=== PATIENT | male | born 1945 | race Caucasian/White ===

== ENCOUNTER → 2016-11-17 | Day surgery (SDC) | payer OTHER ==
[~2016-11-17] VITALS: Ht 185.4 cm; Wt 89.0 kg
[~2016-11-17] MED LIST: ACYC-57 PO; ASPI81TA28 PO; ATOR-54 PO; CEFAZOLIN 1000MG/55 ML D5W IV SCH; CEFAZOLIN 2000 MG/60 ML D5W IV SCH; FENTANYL CITRATE INJ 50 MCG/1 ML 2 ML VIAL IV ONE; FENTANYL CITRATE INJ 50 MCG/1 ML 2 ML VIAL ONE; LIDOCAINE HCL 1% 20 ML VIAL INJ ONE; LIDOCAINE HCL 1% 20 ML VIAL ONE; LISI-725 PO; LOVA20TA4 PO; MIDAZOLAM HCL 1 MG/ML 2ML VIAL IV ONE; MIDAZOLAM HCL 1 MG/ML 2ML VIAL ONE; MISCCAP80 PO; OXYC-57 PO; PSYL55.43 PO
[2016-11-17 06:56] VITALS: BP 135/75; PULSE 66; TEMP 37.2; O2SAT 94; Ht 185.4 cm; Wt 89.0 kg
--- NOTE | 2016-11-17 07:20 | History and Physical ---
History & Physical Date of Service Nov 17, 2016. History & Physical Chief Complaint: CLL, post nfusaport History of Present Illness The patient is a 69 year old male with CLL dx'ed approx 2-3 yr ago who had an infusaport insertion in Mar for chemotherapy. Pt no longer needs the port. Denies HOFF, fever, chills, chest pain, SOB, abd pain, N/V, rest pain, claudication, other complaints. Allergies Coded Allergies: No Known Allergies (Unverified , 03/27/14) Surgical / Medical History Hx Cardiac Surgery: No Hx Abdominal Surgery: No Hx Cancer Surgery: No Hx Thoracic Surgery: No Hx Orthopedic: No Hx Urinary Tract Surgery: Yes (PROSTATECTOMY 2005) HX Other Surgery: No Past Medical/Surgical History: Blood Dyscrasias, Cancer (prostate), Hypertension, Pulmonary Emboli Family History FH: cancer FH: heart disease Social History Smoking Status: Never Smoker Hx Tobacco Use In Past Year?: No Hx Alcohol Use - Type & Amnt: Yes (RED WINE 1-2 GLASSES) Hx Substance Use -Type & Amnt: No ROS - Vascular H&P Review of Systems Review of Systems Constitutional: + fatigue, + malaise, No chills, No fever Skin: No change in color, No rash Eyes: No photophobia, No visual changes ENMT: No rhinorrhea, No sore throat Respiratory: No EDWARDS, No cough, No hemoptysis, No orthopnea Cardiovascular: No chest pain, No chest tightness, No edema, No intermittent claudication, No palpitations, No syncope Gastrointestinal: No abdominal pain, No diarrhea, No nausea, No vomiting Neurologic: No dizziness, No headache, No numbness, No tingling Physical Ex - Vascular H&P Physical Exam Physical Exam: Constitutional: General Apperance: heathly-appearing, well-nourished, well-developed Level of Distress: NAD Ambulation: ambulating normally Psychiatric: Mental Status: active & alert, normal mood, normal affect Orientation: oriented except where noted, to time, to place, to person Memory: recent memory normal, remote memory normal Head: normocephalic, atraumatic Eyes: EOM: EOMI ENMT: normal ENT inspection, hearing grossly normal Neck: supple, trachea midline Lungs: Respiratory effort: no dyspnea Auscultation: breath sounds normal, no wheezing, no rales/crackles, no rhonchi Cardiovascular: Apical Impulse: not displaced Heart Auscultation: RRR, no murmurs, no rubs, no gallops Peripheral Pulses: Pulses: full and equal, in all extremities except if noted Bruits: none appreciated Carotid Pulse: normal on the left, normal on the right Brachial Pulses: normal on the left, normal on the right Radial Pulse: normal on the left, normal on the right Femoral Pulse: normal on the left, normal on the right Posterior Tibialis Pulse: normal on the left, normal on the right Dorsalis Pedis Pulse: normal on the left, normal on the right Abdomen: Bowel Sounds: normal Inspection & Palpation: soft, non-distended Musculoskeletal: normal strength (5/5 throughout), normal tone Extremities: Upper Right: no cyanosis, no edema, no varicosities Upper Left: no cyanosis, no edema, no varicosities Lower Right: no cyanosis, no edema, no varicosities Lower Left: no cyanosis, no edema, no varicosities Neurologic: Cranial Nerves: grossly intact Sensation: grossly intact A&P - Vascular H&P Assessment and Plan ASSESSMENT and PLAN: CLL Post port insertion Plan: Pt admitted for infusaport removal today. Procedure, risks, benefits, and alternatives were discussed with pt, he expresses understanding and agreement.
--- NOTE | 2016-11-17 07:21 | Procedure Note ---
Pre-Mod Sedation Assessment General Date of Moderate Sedation: Nov 17, 2016. Vital Signs: Vital Signs Past 12 Hours Date Time Temp Pulse Resp B/P Pulse Ox O2 Delivery O2 Flow Rate FiO2 11/17/16 06:56 37.2 66 22 135/75 94 Room Air Pre-Sedation Airway Assessment Oral Cavity: WNL Smoking Status: Never Smoker Mallampati Classification: Class I ASA Classification: Class II Notes The planned sedation has been discussed with the patient and consent obtained. I have identified the patient, determined the appropriateness of sedation and have assessed the patient immediately prior to the procedure. All medicine(s) and interventions are by my order.
--- NOTE | 2016-11-17 08:25 | Procedure Note ---
Post-Moderate Sedation Plan General Date of Moderate Sedation Nov 17, 2016. Vital Signs: Vital Signs Past 12 Hours Date Time Temp Pulse Resp B/P Pulse Ox O2 Delivery O2 Flow Rate FiO2 11/17/16 06:56 37.2 66 22 135/75 94 Room Air Review - Discharge Plan Post Moderate Sedation Plan: On clinical assessment, the patient appears to have tolerated the conscious sedation without complications. Patient is recovering as anticipated. Patient will continue to be monitored by nursing and may be discharged when conscious sedation discharge criteria are met.
--- NOTE | 2016-11-17 08:26 | [facility] Post Operative Brief Note ---
Immediate Operative Summary Operative Date Nov 17, 2016. Pre-Operative Diagnosis Post infusaport, no longer needed Post-Operative Diagnosis Same Procedure(s) Performed Removal of infusaport, Moderate conscious sedation Surgeon Nigel Dermatology Physician Assistant Surgeon(s) none Estimated Blood Loss 5cc Findings entire catheter and port removed Specimens port Anesthesia Local with moderate conscious sedation Complication(s) None Disposition
--- NOTE | 2016-11-17 08:29 | Discharge Instructions ---
Discharge Instructions Date of Service Nov 17, 2016. Visit Reason for Visit: Chronic Lymphocytic Leiukemia Discharge Discharge Diagnosis / Problem: Post infusaport Discharge Goals Goal(s): Therapeutic intervention Activity Recommendations Activity Limitations: per Instructions/Follow-up section Anesthesia . Post Anesthesia Instructions: If you have had General Anesthesia or IV Sedation: * Do not drive today. * Resume driving when surgeon permits. * Do not make important decisions or sign legal documents today. * Call surgeon for: 1. Temperature elevations greater than 101 degrees F. 2. Uncontrollable pain. 3. Excessive bleeding. 4. Persistent nausea and vomiting. 5. Medication intolerance (nausea, vomiting or rash). * For nausea and vomiting use only clear liquids such as: tea, soda, bouillon until nausea subsides, then gradually increase diet as tolerated. * If you have any concerns or questions, call your surgeon's office. If physician is unavailable and it is an emergency, call 911 or go to the nearest emergency room. . Instructions / Follow-Up Instructions / Follow-Up Call [phone] to schedule a follow up appointment if one not already scheduled. ACTIVITY RECOMMENDATIONS: See Above SPECIAL CARE INSTRUCTIONS: Call your doctor if: * Temperature above 101 degrees * Pain not relieved by pain medicine ordered * There is increased drainage or redness from any incision * You have any unanswered questions or concerns. Diet Recommendations Recommended Home Diet: resume previous diet Procedures Procedures Performed: Removal of infusaport, Moderate conscious sedation Pending Studies Studies pending at discharge: no Medical Emergencies . Who to Call and When: Medical Emergencies: If at any time you feel your situation is an emergency, please call 911 immediately. . Non-Emergent Contact Non-Emergency issues call your: Surgeon . . "Provider Documentation" section prepared by Huang Manning. [place] [facility] [place] [facility] Search Results: patient reviewed within database, no issues identified
[2016-11-17 08:33] VITALS: BP 143/78; PULSE 63; TEMP 36.6; O2SAT 96
[2016-11-17 09:00] VITALS: BP 136/69; PULSE 65; TEMP 37; O2SAT 96
--- NOTE | 2016-11-17 09:49 | DIAGNOSTIC IMAGING REPORT ---
DATE OF PROCEDURE: 11/17/2016 PREOPERATIVE DIAGNOSIS: Post-infuse port insertion for chemotherapy, no longer needed. POSTOPERATIVE DIAGNOSIS: Same. PROCEDURE: Removal of Expwcf-J-Vbta, moderate conscious sedation 14 minutes. SURGEON: Dr. Manning. ANESTHETIC: Local with conscious sedation. PROCEDURE INDICATIONS: The patient is a 71-year-old gentleman with an Mxlvbw-M-Ejdc in place which is no longer needed. Removal was recommended. He understood the risks, options and benefits and agreed to have this procedure. The patient was taken to the angio suite and placed in the supine position. After right-sided chest was prepped and draped in a sterile manner, local anesthetic was administered around the Omfnve-R-Ozjn. The old incision was opened longitudinally. Dissection was carried down. The Wkjtny-O-Gnov was freed up. The Fmweyp-O-Rvsa in the surrounding capsule was excised. This was done with sharp dissection. Once this was completed, the catheter slid out easily. Bleeding was controlled using electrocautery. The wound was then closed with a running 3-0 Vicryl suture for the subcutaneous layer and a running 4-0 subcuticular Vicryl suture for the skin edges. Sterile dressings were applied to the wound. Dermabond was applied to the wound. The patient left the angio suite in good condition and tolerated the procedure well. PATSY
== END | disposition home or self-care (01) ==
LOC: C.ACU 06:27
PROVIDERS: ATTEND Surgery Vascular Surgery
DX: Z45.2 Encounter for adjustment and management of vascular access device (principal); I26.99 Other pulmonary embolism without acute cor pulmonale; Z98.890 Other specified postprocedural states; I10 Essential (primary) hypertension; D75.9 Disease of blood and blood-forming organs, unspecified

== ENCOUNTER → 2017-01-01 | Outpatient (CLI) | payer OTHER ==
[~2017-01-01] MED LIST changes: -ACYC-57 PO; -CEFAZOLIN 1000MG/55 ML D5W IV SCH; -CEFAZOLIN 2000 MG/60 ML D5W IV SCH; -FENTANYL CITRATE INJ 50 MCG/1 ML 2 ML VIAL IV ONE; -FENTANYL CITRATE INJ 50 MCG/1 ML 2 ML VIAL ONE; -LIDOCAINE HCL 1% 20 ML VIAL INJ ONE; -LIDOCAINE HCL 1% 20 ML VIAL ONE; -LOVA20TA4 PO; -MIDAZOLAM HCL 1 MG/ML 2ML VIAL IV ONE; -MIDAZOLAM HCL 1 MG/ML 2ML VIAL ONE
--- NOTE | 2017-01-05 12:18 | CODING QUERY MEDICAL NECESSITY ---
CQSUPPORTING DIAGNOSIS NEEDED A supporting diagnosis is required for the test/procedure performed on this patient in order for us to be reimbursed by the patient's insurance. Please provide a supporting diagnosis for the following test/procedure listed below next to the test name along with your signature. *If there is no additional diagnosis for this patient that would support the following test/procedure please document that below next to the test/procedure. Test(s)/Procedure(s) that require a supporting diagnosis: DOS 01/01/17 PROSTATE SPECIFIC Provider Signature: Date: Thank you Elidia Coyle [employer] Information Management Once completed, please kindly fax back to [phone] For questions please call [phone]
== END | disposition home or self-care (01) ==
LOC: C.LABBC 13:05
PROVIDERS: ATTEND Urology
DX: R39.9 Unspecified symptoms and signs involving the genitourinary system (principal); C61 Malignant neoplasm of prostate

== ENCOUNTER → 2017-07-23 | Outpatient (CLI) | payer OTHER ==
[~2017-07-23] MED LIST changes: -OXYC-57 PO
[2017-07-23 11:18] LABS: MEAN CELL VOLUME 97.1 fL (80-100); MEAN CORPUSCULAR HEMOGLOBIN 33.9 pg (25-34); MEAN CORPUSCULAR HGB CONC 34.9 g/dl (32-36); MEAN PLATELET VOLUME 9.2 fL (7.4-10.4); PLATELET COUNT 163 K/uL (130-400); RED BLOOD COUNT 4.84 M/uL (4.7-6.1); WHITE BLOOD COUNT 4.59 K/uL (4.8-10.8)
[2017-07-23 11:56] LABS: ALT/SGPT 36 U/L (12-78); AST/SGOT 25 U/L (15-37); BLOOD UREA NITROGEN 16 mg/dl (7-18); BUN/CREATININE RATIO 16.1 (10-20); CALCIUM 8.5 mg/dl (8.5-10.1); CARBON DIOXIDE 29 mmol/L (21-32); CHLORIDE 106 mmol/L (98-107); CHOLESTEROL 165 mg/dl (0-200); CREATININE 0.98 mg/dl (0.60-1.40); GLUCOSE 97 mg/dl (70-99); POTASSIUM 4.1 mmol/L (3.5-5.1); SODIUM 139 mmol/L (136-145)
[2017-07-23 11:59] LABS: ALB/GLOB RATIO 1.5 (0.9-2); ALKALINE PHOSPHATASE 94 U/L (45-117); CHOLESTEROL/HDL RATIO 2.8; HDL CHOLESTEROL 58 mg/dl; LDL CHOLESTEROL CALCULATED 77 mg/dl; TRIGLYCERIDES 149 mg/dl (0-150); VERY LOW DENSITY LIPOPROT CALC 30 mg/dl
== END | disposition home or self-care (01) ==
LOC: C.LABBC 07:40
PROVIDERS: ATTEND Internal Medicine
DX: Z00.00 Encounter for general adult medical examination without abnormal findings (principal); E78.5 Hyperlipidemia, unspecified

== ENCOUNTER → 2017-12-31 | Outpatient (CLI) | payer OTHER | END | disposition home or self-care (01) | LOC: C.LABBC 10:04 | PROVIDERS: ATTEND Urology | DX: C61 Malignant neoplasm of prostate (principal) ==

== ENCOUNTER 2018-09-23 13:13 | Observation (INO) ==
[2018-09-23] MEDS ORDERED: SODIUM CHLORIDE 0.9% 1000ML 1,000 ML IV SCH (14:30)
--- NOTE | 2018-09-23 14:34 | XRay Report ---
XR chest 1V portable CLINICAL HISTORY: 73 years-old Male presenting with Dyspnea. TECHNIQUE: Portable upright AP view of the chest was obtained. COMPARISON: CTA from 12/26/2014 and chest x-ray from 04/11/2014. FINDINGS: Cardiomediastinal silhouette normal. Lungs and pleural spaces clear. Osseous structures normal. IMPRESSION: 1. No acute cardiopulmonary disease. Electronically signed by: Gui Segura M.D. 09/23/2018 2:33 PM
[2018-09-23 15:24] LABS: Hematocrit (blood only) 42.8 % (42-52); Hemoglobin 14.9 g/dL (14.0-18.0); Mean Corpuscular Hgb Conc 34.8 g/dL (32-36); Mean Corpuscular Volume 94.3 fL (80-100); Mean Platelet Volume 9.1 fL (7.4-10.4); Platelet Count 130 K/uL (130-400); RDW Coefficient of Variation 13.1 % (11.5-14.5); RDW Standard Deviation 45.5 fL (36.4-46.3); Red Blood Count 4.54 M/uL (4.7-6.1); White Blood Count 4.69 K/uL (4.8-10.8)
[2018-09-23 15:30] LABS: Partial Thromboplastin Ratio 0.9; Partial Thromboplastin Time 23.2 Seconds (21.0-31.0); Prothrombin Time 9.8 Seconds (9.0-12.0)
[2018-09-23 15:33] LABS: Albumin Level 3.4 gm/dl (3.4-5.0); BUN Creatinine Ratio 20.1 (10-20); Creatinine Clr Calc Pharmacy 83.8 ml/min; Est GFR (African American) 91.6
[2018-09-23 15:38] LABS: Albumin Globulin Ratio 0.9 (0.9-2); Bilirubin,Total 0.4 mg/dl (0.2-1); Globulin 3.9 gm/dl (2.5-4.0); Total Protein 7.3 gm/dl (6.4-8.2); Troponin I 0.016 ng/ml (0-0.045)
[2018-09-23 15:59] LABS: Influenza A virus by PCR Neg for Influ A (Neg); Influenza B virus by PCR Neg for Influ B (Neg)
[2018-09-23 16:47] LABS: ALC (manual) 2.86 K/uL (1.2-3.4); Basophils # (manual) 0.09 K/uL (0-0.2); Basophils % (manual) 1.9 %; Eosinophils # (manual) 0.09 K/uL (0-0.5); Large Granular Lymph % (manual) 19.4 %; Lymphocytes # (manual) 1.95 K/uL (1.2-3.4); Lymphocytes % (manual) 41.6 %; Monocytes # (manual) 0.09 K/uL (0.11-0.59); Monocytes % (manual) 1.9 %; Neutrophils % (manual) 33.3 %; Smudge Cells Present
[2018-09-23] MEDS ORDERED: OPTIRAY 320 125ml IV PRN (16:48)
--- NOTE | 2018-09-23 17:01 | CT Scan Report ---
CT angio chest PE protocol CT DOSE: 525.16 mGy.cm HISTORY: 73 years-old Male with +dd and cp . Acute chest pain with elevated d-dimer level TECHNIQUE: Multiple CTA images of the chest were obtained after the intravenous administration of 120 ml Optiray 320. Coronal and sagittal MIPS were obtained from the axial data set and were submitted for review. All measurements were obtained according to NASCET criteria. A dose lowering technique w as utilized adhering to the principles of ALARA. COMPARISON: Chest radiograph of same day, CTA chest 12/26/2014. FINDINGS: CTA: Heart is upper limits of normal in size. No pericardial effusion. Coronary arterial calcifications ar e noted. Left heart structures are not well opacified secondary to contrast bolus timing. No thoracic aortic aneurysm or dissection. Patency of the imaged great vessels. Multiple filling defects are not ed throughout the pulmonary arterial tree, notably within the distal right main pulmonary artery exte nding into the lobar, segmental and subsegmental branches of the right lung, lobar, segmental and sub segmental branches of the left upper and lower lobes. No definite evidence of associated right heart strain. CT CHEST: No focal thyroid nodule. Calcified subcarinal lymph nodes suggest prior granulomatous disease. Enlarg ed AP window lymph node measures up to 1.5 x 1.3 cm. Enlarged subcarinal lymph node measures up to 2. 2 x 1.4 cm. These findings have slightly progressed from comparison. Mildly prominent retrocrural lym ph nodes are also present. Scattered mildly prominent lymph nodes are seen about the imaged upper abd omen. Trace right pleural effusion. No pneumothorax. Layering groundglass densities about the fissures sugg est atelectasis. Mild thickening of the bronchovascular bundles. Subsegmental bibasilar atelectasis w ithout evidence of pulmonary infarction. 5 mm fissural lymph node adjacent to the right middle lobe. Indeterminate 4 mm solid nodule about the lateral segment right middle lobe, unchanged an likely yasmine gn. Pleural-parenchymal scarring with adjacent 5 mm solid nodule of the right lower lobe on image 105 series 4 also appears unchanged and likely benign. Adjacent calcified granulomas also noted. Central airways appear patent. Soft tissues appear unremarkable. Bones appear to be intact. No suspicious lytic or blastic bony lesi ons. IMPRESSION: 1. Extensive bilateral pulmonary emboli as above. No evidence of associated right heart strain or pul monary infarction. 2. Trace right pleural effusion with mild subsegmental bibasilar atelectasis. 3. Nonspecific mild mediastinal adenopathy. 4. Additional findings as above. The above report was generated using voice recognition software. It may contain grammatical, syntax o r spelling errors. Electronically signed by: Froylan Sagastume M.D. 09/23/2018 4:59 PM
--- NOTE | 2018-09-23 17:24 | History & Physical Report ---
Date of Service September 23, 2018 Assessment & Plan (1) Pulmonary emboli: Patient started on heparin drip as multiple pulmonary emboli seen. In the past the patient been treated with Lovenox and Coumadin for his previous pulmonary embolism he is followed through the Coumadin clinic. He is concerned about his fall risk with his foot drop does not wish to pursue any DOAC medication and will start his Coumadin and Lovenox this evening. Patient takes aspirin only as prophylactic measure he does not have any cardiovascular or cerebrovascular disease this will be held. It is noted the patient did have mention of increased lymphadenopathy in his chest this will likely need to be followed up through his hematology oncologist Dr. Teran (2) Hypertension: Takes lisinopril for blood pressure control we will continue this and monitor his renal function (3) CLL (chronic lymphocytic leukemia): Patient typically follows with Dr. Teran (4) Hyperlipidemia: Patient is on atorvastatin for his cardiovascular risk reduction History of Present Illness Primary Care Provider: Sergio Wylie DO Patient presented with increased shortness of breath he was having some right shoulder blade pain which he attributes to a fall on the ice while walking his dog. Evaluation in the ER included a d-dimer which was elevated and a CT angiogram which showed multiple pulmonary emboli. 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 His dropfoot has been unexplained and has been 20 years in the making. The patient states because of his drop foot is at a fall risk and is kind of cautious about his anticoagulation. He has been on Coumadin in the past he said did have a pulmonary embolism about 4 years ago. After questioning him in the ED this seems to be unprovoked and it was not associate with any DVTs. He currently has no new leg symptoms he is not tachycardic he is not hypoxic on room air and a CT angiogram comments include no signs of right heart strain He will be brought in to be placed on Lovenox with Coumadin transition is been followed at the Coumadin clinic in the past and wishes to follow-up there Allergies Allergy/AdvReac Type Severity Reaction Status Date / Time oyster extract Allergy Hives Verified 09/23/18 15:48 Home Medications Home Medications Medication Instructions Recorded Confirmed Type Lactobacillus acidophilus 1 cap PO BID 09/23/18 09/23/18 History [Probiotic] aspirin [Aspir-81] 81 mg PO .MON/WED/FRI 09/23/18 09/23/18 History atorvastatin 20 mg PO HS 09/23/18 09/23/18 History lisinopril 20 mg PO DAILY 09/23/18 09/23/18 History psyllium 1 dose PO DAILY 09/23/18 09/23/18 History Past Med/Surg History Surgical History History of prostatectomy (Resolved) History of colonoscopy (Resolved) Social History Feels Safe at Home: Yes Smoking Status: Never smoker Preferred Language: [place] Review of Systems ROS: well nourished well developed. Planes of some right scapular pain No double vision blurry vision No problems with speech or swallowing No palpitations, chest pain or pressure No Wheezing or breathing issues No abdominal pain nausea vomiting diarrhea changes in appetite or weight No burning urine urine frequency or changes in color No focal joint pain or muscle pain No skin rashes or oral lesions No unusual bruising or bleeding No focused back pain or numbness prehospital right foot drop No changes in memory or confusion Physical Exam 2 Vital Signs (Past 24 Hours): Last Vital Signs Temp 36.4 C L 09/23/18 13:17 Pulse 65 09/23/18 15:00 Resp 18 09/23/18 15:00 BP 158/86 H 09/23/18 15:00 Pulse Ox 96 09/23/18 15:00 The patient appeared well nourished and normally developed. Vital signs as documented. Head exam is unremarkable. normocephalic, atraumatic Neck is without jugular venous distension, thyromegaly, or lymphademopathy Lungs are clear to auscultation and percussion. Cardiac exam reveals Rhythm is regular. First and second heart sounds normal. Abdominal exam reveals normal bowel sounds, no masses, no organomegaly Extremities are nonedematous there are no cords or tender spots and both pedal pulses are present Neurologic exam is A&Ox3, he has no new focal deficits but continues to have weakness to his right foot he can lift his foot against gravity but cannot resist Psychologically seems neither anxious or depressed Skin is warm Dry without bruises or lesions Results & Data Diagnostic Findings CT angiogram chest IMPRESSION: 1. Extensive bilateral pulmonary emboli. No evidence of associated right heart strain or pulmonary infarction. 2. Trace right pleural effusion with mild subsegmental bibasilar atelectasis. 3. Nonspecific mild mediastinal adenopathy.
[2018-09-23] MEDS ORDERED: HEPARIN SOD (PORCINE) 1000 UNIT/ML 10 ML VIAL ONE (17:39)
[2018-09-23] MEDS ORDERED: HEPARIN 25000 UNIT/500 ML D5W IV ONE (17:39)
[2018-09-23] MEDS ORDERED: ONDANSETRON INJ 2 MG/ML 2 ML VIAL IV PRN (19:18)
[2018-09-23] MEDS ORDERED: WARFARIN SOD 5 MG TAB PO ONE (19:18)
[2018-09-23] MEDS ORDERED: OXYCODONE HCL IR 5 MG TAB (IMMEDIATE RELEASE) PO PRN (19:18)
[2018-09-23] MEDS ORDERED: ACETAMINOPHEN 325 MG TAB PO PRN (19:18)
[2018-09-23] MEDS ORDERED: ALUMINUM/MAGNESIUM SUSP 30 ML UDC PO PRN (19:18)
[2018-09-23] MEDS ORDERED: MoRPHine SULFATE 4 MG/ML 1 ML CARP\\VIAL IV PRN (19:18)
--- NOTE | 2018-09-23 20:26 | Emergency Department Note ---
Entered by Ivelisse Harris acting as a scribe for Juwan Vega DO History of Present Illness General Chief complaint: Shortness of Breath/Dyspnea Stated complaint: SOB, LOSS OF ENERGY Source: patient Mode of arrival: ambulatory Limitations: no limitations History of Present Illness Provider complaint: shortness of breath Onset (ago): day(s) 2 Location: chest Pain Consistency: + other (persistent) Maximum Pain Intensity: 10 Current Pain Intensity: 2 Quality: + other (shortness of breath) Exacerbated By: + other (exertion) Associated symptoms: + denies other symptoms (rhinorrhea) and + chest pain; no cough The patient is a 73 year old male who presents to the Emergency Room with complaints of a persistent shortness of breath that began 2 days ago. The patient reports that he gets short of breath with minimal exertion and that his symptoms feel similar to his history of CLL. He states that he has had some right-sided chest pain but notes it could be secondary to a fall he experienced 10 days ago. He notes that his chest pain is worsened with movement. No other exacerbating or remitting factors. He denies any tobacco use. The patient reports that he has a history of hypertension and hyperlipidemia but denies any heart disease, asthma or COPD. He also denies any coughs or rhinorrhea. Home Medications Home Medications Medication Instructions Recorded Confirmed Type Lactobacillus acidophilus 1 cap PO BID 09/23/18 09/23/18 History [Probiotic] aspirin [Aspir-81] 81 mg PO .MON/WED/FRI 09/23/18 09/23/18 History atorvastatin 20 mg PO HS 09/23/18 09/23/18 History lisinopril 20 mg PO DAILY 09/23/18 09/23/18 History psyllium 1 dose PO DAILY 09/23/18 09/23/18 History Allergies Allergy/AdvReac Type Severity Reaction Status Date / Time oyster extract Allergy Hives Verified 09/23/18 15:48 Past Med/Surg History Surgical History History of prostatectomy (Resolved) History of colonoscopy (Resolved) Social History Feels Safe at Home: Yes Smoking Status: Never smoker Preferred Language: Divehi Review of Systems See HPI for pertinent positives & negatives. and A total of 10 systems reviewed and were otherwise negative Physical Exam Vital Signs Vital Signs - 24 hr 09/23/18 13:17 09/23/18 14:55 09/23/18 14:56 Temperature 36.4 C L Temperature Source Oral Sepsis Recent Fever Within 48 Hours No Sepsis New/Unexplained Change in Mental Status No Sepsis Action Taken by Nursing No Action Required Pulse Rate 88 88 Pulse Rate [Apical] Pulse Rhythm Regular Pulse Rhythm [Apical] Respiratory Rate 20 20 Respiratory Depth Blood Pressure 199/109 H Blood Pressure [Left Arm] Blood Pressure Mean 139 Blood Pressure Mean [Left Arm] Pulse Oximetry 96 96 96 Oxygen Delivery Method Room Air Room Air Room Air 09/23/18 15:00 09/23/18 15:30 09/23/18 16:00 Temperature Temperature Source Sepsis Recent Fever Within 48 Hours Sepsis New/Unexplained Change in Mental Status Sepsis Action Taken by Nursing Pulse Rate 65 74 Pulse Rate [Apical] 65 Pulse Rhythm Pulse Rhythm [Apical] Regular Respiratory Rate 18 16 15 Respiratory Depth Normal Blood Pressure 157/87 H 156/89 H Blood Pressure [Left Arm] 158/86 H Blood Pressure Mean 110 111 Blood Pressure Mean [Left Arm] 110 Pulse Oximetry 96 98 97 Oxygen Delivery Method Room Air 09/23/18 17:43 09/23/18 18:00 09/23/18 18:30 Temperature Temperature Source Sepsis Recent Fever Within 48 Hours Sepsis New/Unexplained Change in Mental Status Sepsis Action Taken by Nursing Pulse Rate 66 66 72 Pulse Rate [Apical] Pulse Rhythm Pulse Rhythm [Apical] Respiratory Rate 22 19 Respiratory Depth Blood Pressure 169/93 H Blood Pressure [Left Arm] Blood Pressure Mean 118 Blood Pressure Mean [Left Arm] Pulse Oximetry 97 97 97 Oxygen Delivery Method 09/23/18 18:39 Temperature Temperature Source Sepsis Recent Fever Within 48 Hours Sepsis New/Unexplained Change in Mental Status Sepsis Action Taken by Nursing Pulse Rate 72 Pulse Rate [Apical] Pulse Rhythm Pulse Rhythm [Apical] Respiratory Rate 19 Respiratory Depth Blood Pressure 169/93 H Blood Pressure [Left Arm] Blood Pressure Mean Blood Pressure Mean [Left Arm] Pulse Oximetry 97 Oxygen Delivery Method Room Air GENERAL: Laying in bed, talking in full sentences, no acute disease. EYE EXAM: normal conjunctiva. OROPHARYNX: no exudate, no erythema, lips, buccal mucosa, and tongue normal and mucous membranes are moist NECK: supple, no nuchal rigidity, no adenopathy, non-tender, no JVD. LUNGS: Clear to auscultation. Normal chest wall mechanics HEART: no murmurs, S1 normal and S2 normal ABDOMEN: abdomen soft, non-tender, normo-active bowel, sounds, no masses, no rebound or guarding. BACK: Back is symmetrical on inspection and there is no deformity, no midline tenderness, no CVA tenderness. SKIN: no rashes and no bruising UPPER EXTREMITIES: upper extremities are grossly normal. LOWER EXTREMITIES: No pitting edema. Calves are equal bilaterally. NEURO EXAM: Normal sensorium, cranial nerves II-XII grossly intact, normal speech, no gross weakness of arms, no gross weakness of legs. Course ED COURSE: Vital signs were reviewed and the patient is hypertensive. The patients medical record was reviewed The above diagnostic studies were performed and reviewed. ED treatments and interventions as stated above. 1415: The patient was evaluated in room B9. A complete history and physical examination was performed. 1706: The patient was updated. He denies a history of hematochezia, hematemesis , or hematuria. 1713: Upon reevaluation, the patient appeared to have improvement of his symptoms. I discussed my findings with the patient and he understands and agrees with the treatment plan. Based on the patients age, coexisting illnesses, exam and lab findings the decision to treat as an inpatient was made. The patient remained stable while under my care. The patient will be evaluated for further management. Administered Medications Discontinued Medications Heparin Sodium (Porcine) (Heparin Iv Bolus) Confirm Administered Dose 10,000 units .ROUTE .STK-MED ONE Stop: 09/23/18 17:40 Last Admin: 09/23/18 17:43 Dose: 7,000 units Heparin Sodium/Dextrose (Heparin Sodium/Dextrose) Confirm Administered Dose 25, 000 units IV .STK-MED ONE Stop: 09/23/18 17:40 Last Admin: 09/23/18 17:44 Dose: 31 ml Sodium Chloride (Nss 1000ml) 1,000 mls @ 999 mls/hr IV .Q1H1M SHERRIE Stop: 09/23/18 15:30 Last Infusion: 09/23/18 16:00 Dose: 0 mls/hr Admin: 09/23/18 14:58 Dose: 999 mls/hr Ioversol (Optiray 320 125ml) 120 ml IV ONCE PRN PRN Reason: Interaction Checking Stop: 09/27/18 16:47 Last Admin: 09/23/18 16:48 Dose: 120 ml Warfarin Sodium (Coumadin) 5 mg PO NOW ONE Stop: 09/23/18 19:19 Last Admin: 09/23/18 19:54 Dose: 5 mg Medical Decision Making Differential Diagnosis Differential diagnoses includes but is not limited to: pneumonia, bronchitis, COPD/Asthma exacerbation, pneumothorax, pulmonary embolism, congestive heart failure, acute coronary syndrome. Medical Records Attestation: I reviewed the patient's medical records. Home Medications Current Medication List: was personally reviewed by me Laboratory Data Attestation: I reviewed the patient's lab results. Result diagrams: 09/23/18 14:55 09/23/18 14:55 Lab Results 09/23/18 09/23/18 09/23/18 Range/Units 14:55 14:55 14:55 WBC 4.69 L (4.8-10.8) K/uL RBC 4.54 L (4.7-6.1) M/uL Hgb 14.9 (14.0-18.0) g/dL Hct 42.8 (42-52) % MCV 94.3 (80-100) fL MCH 32.8 (25-34) pg MCHC 34.8 (32-36) g/dL RDW Std Deviation 45.5 (36.4-46.3) fL RDW Coeff of Gosia 13.1 (11.5-14.5) % Plt Count 130 (130-400) K/uL MPV 9.1 (7.4-10.4) fL Neutrophils % (Manual) 33.3 % Lymphocytes % (Manual) 41.6 % Monocytes % (Manual) 1.9 % Eosinophils % (Manual) 1.9 % Basophils % (Manual) 1.9 % Neutrophils # (Manual) 1.56 (1.4-6.5) K/uL Total Absolute Neuts 1.56 (1.4-6.5) K/uL Lymphocytes # (Manual) 1.95 (1.2-3.4) K/uL Total Abs Lymphocytes 2.86 (1.2-3.4) K/uL Monocytes # (Manual) 0.09 L (0.11-0.59) K/uL Eosinophils # (Manual) 0.09 (0-0.5) K/uL Basophils # (Manual) 0.09 (0-0.2) K/uL Large Granular Lymphs 19.4 % # Lrg Granular Lymphs 0.91 K/uL Smudge Cells Present PT 9.8 (9.0-12.0) Seconds INR 1.0 (0.9-1.1) APTT 23.2 (21.0-31.0) Seconds PTT Ratio 0.9 D-Dimer 4220 H* (0-500) ug/L FEU Sodium 139 (136-145) mmol/L Potassium 4.0 (3.5-5.1) mmol/L Chloride 109 H (98-107) mmol/L Carbon Dioxide 25 (21-32) mmol/L Anion Gap 5.0 (3-11) BUN 19 H (7-18) mg/dl Creatinine 0.94 (0.6-1.4) mg/dl Est Cr Clr Drug Dosing 83.8 ml/min Est GFR ( Amer) 91.6 Est GFR (Non-Af Amer) 79.0 BUN/Creatinine Ratio 20.1 H (10-20) Glucose 101 H (70-99) mg/dl Calcium 9.0 (8.5-10.1) mg/dl Total Bilirubin 0.4 (0.2-1) mg/dl AST 22 (15-37) U/L ALT 26 (12-78) U/L Alkaline Phosphatase 85 (45-117) U/L Troponin I 0.016 (0-0.045) ng/ml Total Protein 7.3 (6.4-8.2) gm/dl Albumin 3.4 (3.4-5.0) gm/dl Globulin 3.9 (2.5-4.0) gm/dl Albumin/Globulin Ratio 0.9 (0.9-2) Influenza Type A (PCR) (Neg) Influenza Type B (PCR) (Neg) 09/23/18 Range/Units 15:00 WBC (4.8-10.8) K/uL RBC (4.7-6.1) M/uL Hgb (14.0-18.0) g/dL Hct (42-52) % MCV (80-100) fL MCH (25-34) pg MCHC (32-36) g/dL RDW Std Deviation (36.4-46.3) fL RDW Coeff of Gosia (11.5-14.5) % Plt Count (130-400) K/uL MPV (7.4-10.4) fL Neutrophils % (Manual) % Lymphocytes % (Manual) % Monocytes % (Manual) % Eosinophils % (Manual) % Basophils % (Manual) % Neutrophils # (Manual) (1.4-6.5) K/uL Total Absolute Neuts (1.4-6.5) K/uL Lymphocytes # (Manual) (1.2-3.4) K/uL Total Abs Lymphocytes (1.2-3.4) K/uL Monocytes # (Manual) (0.11-0.59) K/uL Eosinophils # (Manual) (0-0.5) K/uL Basophils # (Manual) (0-0.2) K/uL Large Granular Lymphs % # Lrg Granular Lymphs K/uL Smudge Cells PT (9.0-12.0) Seconds INR (0.9-1.1) APTT (21.0-31.0) Seconds PTT Ratio D-Dimer (0-500) ug/L FEU Sodium (136-145) mmol/L Potassium (3.5-5.1) mmol/L Chloride (98-107) mmol/L Carbon Dioxide (21-32) mmol/L Anion Gap (3-11) BUN (7-18) mg/dl Creatinine (0.6-1.4) mg/dl Est Cr Clr Drug Dosing ml/min Est GFR ( Amer) Est GFR (Non-Af Amer) BUN/Creatinine Ratio (10-20) Glucose (70-99) mg/dl Calcium (8.5-10.1) mg/dl Total Bilirubin (0.2-1) mg/dl AST (15-37) U/L ALT (12-78) U/L Alkaline Phosphatase (45-117) U/L Troponin I (0-0.045) ng/ml Total Protein (6.4-8.2) gm/dl Albumin (3.4-5.0) gm/dl Globulin (2.5-4.0) gm/dl Albumin/Globulin Ratio (0.9-2) Influenza Type A (PCR) Neg for Influ A (Neg) Influenza Type B (PCR) Neg for Influ B (Neg) Imaging Data Radiologist's Impression: Radiology results as stated below per my review and the radiologist's interpretation: XR chest 1V portable CLINICAL HISTORY: 73 years-old Male presenting with Dyspnea. TECHNIQUE: Portable upright AP view of the chest was obtained. COMPARISON: CTA from 12/26/2014 and chest x-ray from 04/11/2014. FINDINGS: Cardiomediastinal silhouette normal. Lungs and pleural spaces clear. Osseous structures normal. IMPRESSION: 1. No acute cardiopulmonary disease. Electronically signed by: Gui Segura M.D. 09/23/2018 2:[address] angio chest PE protocol CT DOSE: 525.16 mGy.cm HISTORY: 73 years-old Male with +dd and cp . Acute chest pain with elevated d- dimer level TECHNIQUE: Multiple CTA images of the chest were obtained after the intravenous administration of 120 ml Optiray 320. Coronal and sagittal MIPS were obtained from the axial data set and were submitted for review. All measurements were obtained according to NASCET criteria. A dose lowering technique was utilized adhering to the principles of ALARA. COMPARISON: Chest radiograph of same day, CTA chest 12/26/2014. FINDINGS: CTA: Heart is upper limits of normal in size. No pericardial effusion. Coronary arterial calcifications are noted. Left heart structures are not well opacified secondary to contrast bolus timing. No thoracic aortic aneurysm or dissection. Patency of the imaged great vessels. Multiple filling defects are noted throughout the pulmonary arterial tree, notably within the distal right main pulmonary artery extending into the lobar, segmental and subsegmental branches of the right lung, lobar, segmental and subsegmental branches of the left upper and lower lobes. No definite evidence of associated right heart strain. CT CHEST: No focal thyroid nodule. Calcified subcarinal lymph nodes suggest prior granulomatous disease. Enlarged AP window lymph node measures up to 1.5 x 1.3 cm. Enlarged subcarinal lymph node measures up to 2.2 x 1.4 cm. These findings have slightly progressed from comparison. Mildly prominent retrocrural lymph nodes are also present. Scattered mildly prominent lymph nodes are seen about the imaged upper abdomen. Trace right pleural effusion. No pneumothorax. Layering groundglass densities about the fissures suggest atelectasis. Mild thickening of the bronchovascular bundles. Subsegmental bibasilar atelectasis without evidence of pulmonary infarction. 5 mm fissural lymph node adjacent to the right middle lobe. Indeterminate 4 mm solid nodule about the lateral segment right middle lobe, unchanged an likely benign. Pleural-parenchymal scarring with adjacent 5 mm solid nodule of the right lower lobe on image 105 series 4 also appears unchanged and likely benign. Adjacent calcified granulomas also noted. Central airways appear patent. Soft tissues appear unremarkable. Bones appear to be intact. No suspicious lytic or blastic bony lesions. IMPRESSION: 1. Extensive bilateral pulmonary emboli as above. No evidence of associated right heart strain or pulmonary infarction. 2. Trace right pleural effusion with mild subsegmental bibasilar atelectasis. 3. Nonspecific mild mediastinal adenopathy. 4. Additional findings as above. The above report was generated using voice recognition software. It may contain grammatical, syntax or spelling errors. Electronically signed by: Froylan Sagastume M.D. 09/23/2018 4:59 PM ECG Data Attestation: I personally reviewed and interpreted this ECG as follows: Indication: SOB/dyspnea Rate (beats per minute): 72 Rhythm: sinus rhythm Findings: + other (normal axis); no PVC Blood Pressure Blood Pressure Findings: Elevated blood pressure Blood Pressure Disposition: further management by hospitalist CATERINA Narrative Patient is a 73-year-old male who presents the ER of breath on exertion which is been present since Sunday. Does have a past medical history of CLL and previous blood clots in the past. Follows with Dr. Damon. Chart was reviewed. Most of his pain is on the right side. Labs were obtained and showed no significant leukocytosis or anemia. INR was unremarkable. D-dimer was elevated at 4000. BMP was unremarkable with normal renal function along with LFTs and troponin. Influenza was negative. Chest x-ray with no acute pathology. EKG showed no STEMI. CT PE of the chest shows extensive bilateral PEs. Patient was updated bedside. Reviewed bleeding risk factors with him and he had nothing at this time. Had been on warfarin before in the past. Patient was given IV heparin bolus and placed on a heparin drip. Consult the hospitalist for admission for bilateral PEs causing shortness of breath on heparin drip IV following heparin bolus. Impression & Plan Bilateral pulmonary embolism, Dyspnea Critical Care Time I have personally spent 35 minutes of critical care time in the direct management of this patient. This includes bedside care, interpretation of diagnostic studies and testing, discussion with consultants, patient, and family members, and other required patient management activities. These 35 minutes is in excess of all separately billable procedures.3 Critical Care Time: Yes Total Critical Care Time: 35 Discharge Plan Visit Data *Final* Discharge Date/Time: 09/23/18 18:39 Chief Complaint: Shortness of Breath/Dyspnea Stated Complaint: SOB, LOSS OF ENERGY ED Provider: Juwan Vega Discharge Problem: Bilateral pulmonary embolism, Dyspnea Patient Disposition: Admitted As Inpatient Discharge Instructions Interventions: ED Discharge Assessment Last Done: 09/23/18 18:39 The scribe's documentation has been prepared under my direction and personally reviewed by me in its entirety. I confirm that the note above accurately reflects all work, treatment, procedures, and medical decision making performed by me.
[2018-09-23] MEDS ORDERED: STOP ORDER~HEPARIN DRIP ONE (20:30)
[2018-09-23] MEDS ORDERED: ATORVASTATIN 20 MG TAB PO SCH (21:00)
[2018-09-23] MEDS: ENOXAPARIN 100 MG/1ML SYR SC SCH (21:26)
[2018-09-23] MEDS: LACTOBACILLUS ACIDOPHILUS (FLORANEX) TAB PO SCH (21:28)
[2018-09-23 22:04] LABS: Appearance Urine Clear (Clear); Bacteria Urine Automated Negative (Negative); Bilirubin Urine Negative (Negative); Cast Urine Automated 0 /lpf (0-5); Color Urine Yellow; Glucose Urine UA Negative (Negative); Ketones Urine Negative (Negative); Leukocyte Esterase Urine Negative (Negative); Nitrite Urine Negative (Negative); Protein Urine Negative (Negative); Specific Gravity Urine 1.038 (1.000-1.030); Urobilinogen Urine Negative (Negative); WBC Urine Automated 0 /hpf (0-5)
[2018-09-24 06:07] LABS: Prothrombin Time 10.2 Seconds (9.0-12.0)
[2018-09-24 06:23] LABS: BUN Creatinine Ratio 17.3 (10-20); Calcium 8.6 mg/dl (8.5-10.1); Creatinine Clr Calc Pharmacy 74.4 ml/min; Est GFR (African American) 88.1; Est GFR (Non-African American) 76.1; Potassium 3.9 mmol/L (3.5-5.1)
[2018-09-24] MEDS ORDERED: PSYLLIUM 58.6% POWDER PACKET PO SCH (09:00)
[2018-09-24] MEDS ORDERED: LISINOPRIL 20 MG TAB PO SCH (09:00)
[2018-09-24] MEDS: ENOXAPARIN 100 MG/1ML SYR SC SCH (09:25)
[2018-09-24] MEDS: LACTOBACILLUS ACIDOPHILUS (FLORANEX) TAB PO SCH (09:26)
[2018-09-24] MEDS ORDERED: WARFARIN SOD 5 MG TAB PO SCH (16:00)
--- NOTE | 2018-09-24 17:08 | Discharge Summary ---
Date of Service September 24, 2018 Admission HPI Per Admitting Provider Patient presented with increased shortness of breath he was having some right shoulder blade pain which he attributes to a fall on the ice while walking his dog. Evaluation in the ER included a d-dimer which was elevated and a CT angiogram which showed multiple pulmonary emboli. 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 His dropfoot has been unexplained and has been 20 years in the making. The patient states because of his drop foot is at a fall risk and is kind of cautious about his anticoagulation. He has been on Coumadin in the past he said did have a pulmonary embolism about 4 years ago. After questioning him in the ED this seems to be unprovoked and it was not associate with any DVTs. He currently has no new leg symptoms he is not tachycardic he is not hypoxic on room air and a CT angiogram comments include no signs of right heart strain He will be brought in to be placed on Lovenox with Coumadin transition is been followed at the Coumadin clinic in the past and wishes to follow-up there Principal Diagnosis pulmonary embolism Discharge Exam Constitutional well developed and average body habitus Eyes no conjunctival abnormality and no scleral abnormality Neck normal visual inspection and trachea midline Respiratory normal respiratory effort; no respiratory distress Auscultation: lungs clear to auscultation bilaterally Cardiovascular RRR, no murmur, no edema Gastrointestinal (Abdomen) normal bowel sounds, soft, nontender, no hepatosplenomegaly Musculoskeletal no cyanosis or clubbing, extremities motor strength 5/5 does have some shoulder blade tenderness after fall, CT comments all margarette structures normal, recommended tylenol and topical lidocaine Discharge Data Allergies Allergy/AdvReac Type Severity Reaction Status Date / Time oyster extract Allergy Hives Verified 09/23/18 15:48 Ordered Studies 09/23/18 16:07 CT angio chest PE protocol Stat Hospital Course (1) Pulmonary emboli: Patient started on heparin drip as multiple pulmonary emboli seen. In the past the patient been treated with Lovenox and Coumadin for his previous pulmonary embolism he is followed through the Coumadin clinic. He is concerned about his fall risk with his foot drop does not wish to pursue any DOAC medication and will start his Coumadin and Lovenox this evening. Patient takes aspirin only as prophylactic measure he does not have any cardiovascular or cerebrovascular disease this will be held. It is noted the patient did have mention of increased lymphadenopathy in his chest this will be followed up through his hematology oncologist Dr. Teran (2) Hypertension: Takes lisinopril for blood pressure control we will continue this and monitor his renal function (3) CLL (chronic lymphocytic leukemia): Patient typically follows with Dr. Teran (4) Hyperlipidemia: Patient is on atorvastatin for his cardiovascular risk reduction Total Time Total Time Spent Total Time Spent (In Minutes): less than 30 minutes Discharge Plan Discharge Items Patient Disposition: Home - Self-Care Reason For Visit: PULMONARY EMBOLISM Discharge Diagnosis: Pulmonary embolism Discharge Goals: Decrease discomfort and Improve disease control Activity: Resume your previous activity Non-emergency contact: Primary Care Provider Call non-emergency contact if: you have any medication questions Follow-up/Referrals: Bronwyn Blum MD, PhD [Pathologist] - 09/26/18 2:45 pm (Please, follow up at [facility] on September 26 at 3:00 pm (arrive 2:45 pm). *This clinic is located in the rear of the [facility]. You will park BEHIND the hospital in [address] and enter via [facility]. If you need to change this appointment, call the clinic at [phone].) Sergio Wylie, DO [Primary Care Provider] - 09/30/18 9:20 am (Please, follow up with Dr. Sergio Wylie on SundaySeptember 30 at 9:20 am. *If you need to change this appointment, call the office at [phone].) Diet: Regular Addtl Provider Instructions: please have no intentional exercise until your follow up with Dr Blum For your shoulder/back pain consider tylenol 1000mg 3 or 4 times a day and topical lidocain patches that are over the counter Prescriptions: New enoxaparin 100 mg/mL Syringe 100 mg SC Q12H Qty: 10 RF: 0 warfarin [Coumadin] 5 mg Tablet 5 mg PO DAILY@1600 Qty: 30 RF: 5 Continue aspirin [Aspir-81] 81 mg Tablet,Delayed Release (Dr/Ec) 81 mg PO .MON/SUN/SUN RF: 0 atorvastatin 20 mg tablet 20 mg PO HS RF: 0 lisinopril 20 mg tablet 20 mg PO DAILY RF: 0 Lactobacillus acidophilus [Probiotic] 10 billion cell Capsule 1 cap PO BID RF: 0 psyllium Powder 1 dose PO DAILY RF: 0 Stand-Alone Forms: [facility] Discharge Orders: Discharge Order (Routine); Ordered 09/24/18 Ordered By: Ted Mejia Admission Data Admit Date/Time: 09/23/18 17:53 Attending Provider: Ted Mejia Admit Provider: Ted Mejia Primary Care Provider: Sergio Wylie Service: Telemetry Other Interventions: Discharge Summary Assessment (RN) Last Done: 09/24/18 10:46 DC Date/Time DO NOT enter until pt leaves facility: 09/24/18 11:11
== END 2018-09-24 11:11 | disposition home or self-care (01) ==
LOC: 2N 13:13 → ED 13:13 → 2N 18:39
DX: E78.5 Hyperlipidemia, unspecified; Z79.82 Long term (current) use of aspirin; I10 Essential (primary) hypertension; I26.99 Other pulmonary embolism without acute cor pulmonale; C91.10 Chronic lymphocytic leukemia of B-cell type not having achieved remission; Z79.899 Other long term (current) drug therapy; Z90.79 Acquired absence of other genital organ(s)